=== PATIENT | female | born 1960 | race Caucasian/White ===

== ENCOUNTER → 2024-08-18 | Outpatient (CLI) | payer MEDICARE, SELFPAY ==
[2024-08-18 17:51] LABS: EXAGEN MAILED SPECIMEN
== END | disposition home or self-care (01) ==
DX: D89.89 Other specified disorders involving the immune mechanism, not elsewhere classified (principal); E34.9 Endocrine disorder, unspecified; K76.0 Fatty (change of) liver, not elsewhere classified; R71.8 Other abnormality of red blood cells; R53.83 Other fatigue
CPT/HCPCS: 36415

== ENCOUNTER → 2024-08-26 | Outpatient (CLI) | payer OTHER, SELFPAY ==
[2024-08-26 08:42] LABS: EXAGEN MAILED SPECIMEN
== END | disposition home or self-care (01) ==
PROVIDERS: PCP Student in an Organized Health Care Education/Training Program
DX: R53.83 Other fatigue (principal); R71.8 Other abnormality of red blood cells; R76.0 Raised antibody titer; E34.9 Endocrine disorder, unspecified; D89.89 Other specified disorders involving the immune mechanism, not elsewhere classified
CPT/HCPCS: 36415